=== PATIENT | female | born 1955 | race Caucasian/White ===

== ENCOUNTER → 2020-07-23 08:47 | Outpatient (CLI) | payer BC, SELFPAY ==
--- NOTE | ~2020-07-23 | MMUS_ITS ---
EXAMINATION: MM diagnostic geoffrey BI w joanne, US breast RT complete HISTORY: Palpable right breast mass with pain TECHNIQUE: Additional 3-D tomosynthesis images of the breasts were performed and synthetic 2-D images were generated. CAD analysis was submitted and interpreted. High resolution complete right breast ul trasound was performed. COMPARISON: Comparison to multiple prior studies sequentially, with oldest reviewed study dated 07/22. BREAST PARENCHYMAL COMPOSITION: Breast composed of scattered areas of fibroglandular density. FINDINGS: MAMMOGRAPHIC FINDINGS: There is an irregular shaped mass in the upper central right breast, middle third measuring up to 4.4 cm with spiculated margins. There is no mammographic evidence for malignancy in the left breast. ULTRASOUND: Complete right breast ultrasound: At 12:00, 4 cm from the nipple, there is a irregular shaped hypoechoic mass measuring 4 x 2.5 x 2.8 c m with areas of posterior shadowing and marginal vascularity. This corresponds to the mass identified on mammography. IMPRESSION: 1. Spiculated mass of the right breast at 12:00, 4 cm from the nipple measuring 4 cm maximum dimensio n on ultrasound. 2. Ultrasound-guided right breast biopsy recommended. BI-RADS category 5, highly suggestive of malignancy. Reviewed, dictated and finalized at location A. TE BROADCAST TECHNICIAN IMPRESSION: 1. Spiculated mass of the right breast at 12:00, 4 cm from the nipple measuring 4 cm maximum dimension on ultrasound. 2. Ultrasound-guided right breast biopsy recommended. BI-RADS category 5, highly suggestive of malignancy.
== END ==
PROVIDERS: PCP Family Medicine; Visit Provider Family Medicine
DX: N64.4 Mastodynia (principal); N63.10 Unspecified lump in the right breast, unspecified quadrant; R92.8 Other abnormal and inconclusive findings on diagnostic imaging of breast
CPT/HCPCS: 76641; 77062; 77066; G0279